=== PATIENT | female | born 1995 | race Caucasian/White ===

== ENCOUNTER 2016-08-15 15:36 | Emergency (ER) | payer BC ==
[2016-08-15 15:53] VITALS: BP 114/65
[2016-08-15] MEDS ORDERED: Acetaminophen TAB* 325 MG PO ONE (16:30)
--- NOTE | 2016-08-15 16:47 | UC ---
Throat Pain/Nasal Guille HPI - HPI Summary HPI Summary: pt c/o of fever, chills, sore throat, body aches X 2 days. - History of Current Complaint Chief Complaint: UCGeneralIllness Stated Complaint: FEVER/SORE THROAT/BODY ACHES Time Seen by Provider: 08/15/16 16:25 Hx Obtained From: Patient Hx Last Menstrual Period: 02/07/16 - on depo ?: No Onset/Duration: Gradual Onset, Lasting Days Severity: Mild Cough: Nonproductive Associated Signs & Symptoms: Positive: Dysphagia - Allergies/Home Medications Allergies/Adverse Reactions: Allergies Allergy/AdvReac Type Severity Reaction Status Date / Time No Known Allergies Allergy Verified 08/15/16 15:53 Home Medications: Home Medications NK [No Home Medications Reported] 08/15/16 [History Confirmed 08/15/16] PMH/Surg Hx/FS Hx/Imm Hx Previously Healthy: Yes - Surgical History Surgical History: Yes Surgery Procedure, Year, and Place: APPENDECTOMY, right foot surgery - Family History Known Family History: Positive: Hypertension - Social History Lives: With Family Alcohol Use: None Substance Use Type: None Smoking Status (MU): Light Every Day Tobacco Smoker Type: Cigarettes Amount Used/How Often: 7 cigarettes/ day Review of Systems Constitutional: Fever, Chills, Fatigue Skin: Negative Eyes: Negative ENT: Sore Throat Respiratory: Cough Cardiovascular: Negative Gastrointestinal: Negative Genitourinary: Negative Motor: Negative Neurovascular: Negative Musculoskeletal: Myalgia Neurological: Negative Psychological: Negative All Other Systems Reviewed And Are Negative: Yes Physical Exam Triage Information Reviewed: Yes Appearance: Ill-Appearing Vital Signs: Initial Vital Signs Temp 100.5 F 08/15/16 15:48 Pulse 123 08/15/16 15:48 Resp 18 08/15/16 15:48 BP 114/65 08/15/16 15:48 Pulse Ox 100 08/15/16 15:48 Vital Signs Reviewed: Yes Eye Exam: Normal ENT Exam: Other ENT: Positive: Nasal congestion, TM bulging Neck exam: Normal Respiratory Exam: Normal Cardiovascular Exam: Normal Musculoskeletal Exam: Normal Neurological Exam: Normal Psychological Exam: Normal Skin Exam: Normal Throat Pain/Nasal Course/Dx - Differential Dx/Diagnosis Differential Diagnosis/HQI/PQRI: Influenza, Pharyngitis, Tonsillitis, URI Provider Diagnoses: viral syndrome Discharge - Discharge Plan Condition: Stable Disposition: HOME Patient Education Materials: Viral Syndrome (ED) Forms: *Work Release Referrals: Fariha COLVIN,Hoang Brand [Primary Care Provider] - If Needed Additional Instructions: Please follow up with your PCP or return to clinic as needed.
== END 2016-08-15 16:54 | disposition home or self-care (01) ==
LOC: UCCORT 15:36
DX: B34.9 Viral infection, unspecified (principal); F17.210 Nicotine dependence, cigarettes, uncomplicated
CPT/HCPCS: 87502; 99212; A9270-GY; G0463

== ENCOUNTER 2017-07-31 12:25 | Emergency (ER) | payer MEDICAID, OTHER ==
--- NOTE | 2017-07-31 13:05 | UC ---
FLU HPI - HPI Summary HPI Summary: Pt presents with fever, sinus congestion, dry cough, and body aches for 2 days. She is currently 6 months . Has been taking tylenol with good relief of her fever. She called her OB yesterday and they told her to come to today if she was not better to be tested for the flu. Denies SOB, chest pain, abdominal pain, n/v/d/c, cramping, spotting or vaginal bleeding. - History of Current Complaint Stated Complaint: BODY ACHES, CONGESTION Time Seen by Provider: 07/31/17 13:03 Hx Obtained From: Patient Hx Last Menstrual Period: 02/07/16 - on depo ?: Yes - 6m Onset/Duration: Gradual Onset Severity Currently: Mild Severity Initially: Mild Pain Intensity: 3 Pain Scale Used: 0-10 Numeric - Allergy/Home Medications Allergies/Adverse Reactions: Allergies Allergy/AdvReac Type Severity Reaction Status Date / Time bee venom protein (honey bee) Allergy Swelling Verified 07/31/17 13:05 Home Medications: Home Medications Acetaminophen [Acetaminophen Extra Strength] 500 mg PO Q4H PRN 07/31/17 [ History Confirmed 07/31/17] Phenylephrine/Dm/Acetaminop/GG [Mucinex Fast-Max Cold/Flu 6-13-370-325 mg] 2 cap PO Q4H PRN 07/31/17 [History Confirmed 07/31/17] PMH/Surg Hx/FS Hx/Imm Hx - Additional Past Medical History Additional PMH: None Previously Healthy: Yes - Surgical History Surgical History: Yes Surgery Procedure, Year, and Place: APPENDECTOMY, right foot surgery - Family History Known Family History: Positive: Hypertension - Social History Occupation: Employed Full-time Lives: With Family Alcohol Use: None Substance Use Type: None Smoking Status (MU): Light Every Day Tobacco Smoker Type: Cigarettes Amount Used/How Often: 7 cigarettes/ day Review of Systems Constitutional: Fever, Fatigue, Other - Body aches Skin: Negative Eyes: Negative ENT: Sinus Congestion Respiratory: Cough Cardiovascular: Negative Gastrointestinal: Negative Genitourinary: Negative Neurovascular: Negative Musculoskeletal: Negative Neurological: Negative Psychological: Negative All Other Systems Reviewed And Are Negative: Yes Physical Exam - Summary Physical Exam Summary: GENERAL: NAD. WDWN. No pain distress. SKIN: No rashes, sores, ulcers, masses, lesions. HEENT: Head: AT/NC Eyes: EOM intact. Conjunctiva clear without inflammation or discharge. Ears: Hearing grossly normal. TMs intact, no bulging, erythema, or edema. Nose: Nasal mucosa pink and moist. NTTP maxillary and frontal sinus. Throat: Posterior oropharynx without exudates, erythema, or tonsillar enlargement. Uvula midline. NECK: Supple. Nontender. No lymphadenopathy. CHEST: CTAB. No r/r/w. No accessory muscle use. Breathing comfortably and in no distress. CV: RRR. Without m/r/g. Pulses intact. Brisk cap refill. NEURO: Alert. CN II-XII grossly intact. PSYCH: Age appropriate behavior. Triage Information Reviewed: Yes Flu Course/Dx - Course Course Of Treatment: POC Flu B positive. Given her recommendations are to begin tamiflu. - Differential Dx/Diagnosis Provider Diagnoses: Influenza B Discharge - Sign-Out/Discharge Documenting (check all that apply): Discharge - Discharge Plan Condition: Stable Disposition: HOME Prescriptions: Oseltamivir CAP* [Tamiflu CAP*] 75 mg PO BID #10 cap Patient Education Materials: Influenza (DC) Forms: *Work Release Referrals: Fariha COLVIN,Hoang Brand [Primary Care Provider] - Additional Instructions: If you develop a fever, shortness of breath, chest pain, new or worsening symptoms - please call your PCP or go to the ED. 1) Continue to take tylenol for your fever/discomfort 2) If your symptoms worsen or continue - please follow up with your OBGYN - Billing Disposition and Condition Condition: STABLE Disposition: HOME
[2017-07-31 13:09] VITALS: BP 112/66
== END 2017-07-31 13:39 | disposition home or self-care (01) ==
LOC: UCCORT 12:25
DX: J10.1 Influenza due to other identified influenza virus with other respiratory manifestations (principal); F17.210 Nicotine dependence, cigarettes, uncomplicated
CPT/HCPCS: 87502; 99212; G0463

== ENCOUNTER 2017-10-26 08:24 | Inpatient (IN) | payer OTHER ==
[2017-10-26] MEDS ORDERED: Misoprostol TAB* 100 MCG PO ONE ×2 (09:43→14:15)
[2017-10-26] MEDS ORDERED: Penicillin G Potassium IV* 5,000,000 UNITS in NS 0.9% 100 ML* 100 ML IVPB ONE (10:00)
--- NOTE | 2017-10-26 10:05 | HP ---
General Information - General Information Maternal Age: 22 Grav: 1 Para: 0 SAB: 0 IEA: 0 Estimated Due Date: 10/31/17 Determined By: Early Ultrasound Gestational Age in Weeks and Days: 39 Weeks and 2 Days Maternal Blood Type and Rh: O Positive - Results this Serology/RPR Result: Non-Reactive Rubella Result: Immune HBsAg Result: Negative HIV Result: Negative GBS Culture Result: Positive Past Medical History Delivery History: See Records Pertinent Past Medical History: Non-Contributory Pertinent Past Surgical History: None Pertinent Family History: See Records - Dm,HTN,thyroid, lung CA, autism, blindness Review of Systems Constitutional: Comfortable CV Complaint: No Respiratory: Shortness of Breath: No Gastrointestinal: No Nausea/Vomiting, Normal Bowel Movement Genitourinary: No Dysuria, No Bleeding, No Leaking Fluid Musculoskeletal: No Complaint Neurological: No Headache Movement: Normal Exam Allergies/Adverse Reactions: Allergies bee venom protein (honey bee) Allergy (Verified 07/31/17 13:05) Swelling T:98.7, R:18, BP: 114/72, O2:100, P:91 - Measurements Height: 5 ft 2 in Weight: 112 lb Weight in lbs: 112.588133 Body Mass Index (BMI): 20.5 Pre- Weight: 90 lb Weight Gained This : 22 lbs and 0 ozs - Exam Abdomen: No Upper Quadrant Pain Breast: Breast Exam Deferred CVA: No CVA Tenderness Extremities: No Edema Heart: Normal Rhythm/Heart Sounds HEENT: No Significant Findings Lungs: Clear Bilaterally Rectal: Rectal Exam Deferred Reflexes: DTR 2+ Thyroid: No Thyromegaly - Abdominal Exam Abdomen Exam: Non-Tender Abdomen Exam Comment: s<d - Ultrasound/Biophysical Profile Ultrasound Status: Not Done Targeted Exam Findings See L&D Outpatient Visit Provider Note for Findings: N/A Cervical Exam: 2cm Effacement: 70% Station: -1 Presenting Part: Vertex Membrane Status: Intact Bleeding/Discharge: None EFM Findings - External Monitor Findings Baseline Heart Rate: 130 External Monitor Findings: Accelerations Present, No Pattern of Variable or Late Decelerations, Variability Moderate, Baseline Stable Contractions: Irregular, < 45 Seconds Contraction Frequency: 5-9 Assessment/Plan - Reason for Visit Reason for Visit: Induction of labor IUGR - Obstetrical Risk Factors Obstetrical Risk Factors: GBS Positive Risk Factors Comment: IUGR - Plan Plan: Induction, Cervical Ripening - Date/Time of Admission Date of Admission: 10/26/17 Time of Admission: 10:00
[2017-10-26] MEDS: Ondansetron ODT TAB* 4 MG PO PRN ×2 (11:59→21:04)
[2017-10-26 12:40] LABS: ABS Basophils 0 10^3/ul (0-0.2); ABS Eosinophils 0.1 10^3/ul (0-0.6); ABS Lymphocytes 2.2 10^3/ul (1.0-4.8); ABS Monocytes 0.8 10^3/ul (0-0.8); ABS Neutrophils 6.9 10^3/ul (1.5-7.7); ABS Nucleated RBC 0 10^3/ul; Eosinophil % 1.3 % (0-6); Hematocrit 37 % (35-47); Hemoglobin 12.4 g/dl (12.0-16.0); Lymphocyte % 21.7 % (25-47); Mean Corpuscular HGB Conc 34 g/dl (31-36); Mean Corpuscular Hemoglobin 31 pg (27-31); Mean Corpuscular Volume 91 fL (80-97); Nucleated Red Blood Cells % 0; Platelet Count 402 10^3/ul (150-450); Red Blood Count 4.04 10^6/ul (4.00-5.40); Red Cell Distribution Width 13 % (10.5-15)
--- NOTE | 2017-10-26 18:28 | PN ---
Progress Note - Progress Note Date of Service: 10/26/17 - 16:30 Note: S: Pt still comfortable, reports an increase in cramping and back pain but denies contractions at this time. +FM, -LOF, -VB. O: BP: 105/62. P: 72, R:18, T:98.7 Cervix: 2/80/-1 NST:baseline 130bpm, +Accels, -decels, mod variability, ctx q 3 -4min A: 22 y.o. 39w2d EGA, GBS +, Cat 1 NST. IOL for IUGR. P: 1) Reviewed options with patient 2) Continue with second dose of misoprostol. 3) Reevaluate in 4 hours or sooner PRN 4) Encourage position changes and ambulation
[2017-10-26] MEDS ORDERED: Nalbuphine* 10 MG/ML 1 ML VIAL IV ONE (23:30)
[2017-10-26] MEDS ORDERED: Promethazine INJ(RESTRICTED)* 25 MG/ML 1 ML VIAL IV ONE (23:30)
--- NOTE | 2017-10-26 23:33 | PN ---
Progress Note - Progress Note Date of Service: 10/26/17 SOAP: Subjective: [Pt tired and weepy. Reviewed options with patient and pt elects for therapeutic rest and reevaluation in the AM. ] Objective: [cervix: ] Assessment: [22 y.o. IOL IUGR] Plan: [1) Counseled pt on options 2) therapeutic rest 3) Reevaluate PRN]
[2017-10-27] MEDS: Penicillin G Potassium IV* 2,500,000 UNITS in NS 0.9% 100 ML* 100 ML IVPB SCH ×5 (01:00→16:17)
[2017-10-27] MEDS: Ondansetron ODT TAB* 4 MG PO PRN ×2 (04:29→16:17)
[2017-10-27] MEDS ORDERED: OBEPIDURAL* 250 ML EPIDURAL ONE (12:10)
--- NOTE | 2017-10-27 12:37 | PN ---
Progress Note - Progress Note Date of Service: 10/26/17 - 9:00 SOAP: Subjective: [Pt increasingly uncomfortable and requests epidural. -LOF, +FM, -VB, + bloody show.] Objective: BP: 106/56, T:98.6 [FHT: baseline: 140bpm, + accels, -decels, mod variability] Cervix: 3-90/0 Assessment: [22 y.o. , IUGR, IOL] Plan: [1) AROM: clear 2) Epidural 3) Reevaluate PRN ]
[2017-10-27] MEDS ORDERED: Famotidine TAB* 20 MG PO PRN (13:09)
[2017-10-27] MEDS ORDERED: Sodium Citrate/Citric Acid* 15 ML UDC PO PRN (13:09)
[2017-10-27] MEDS ORDERED: Phenylephrine IV* 40 MCG/ML 10 ML SYRINGE IV PUSH PRN (13:09)
--- NOTE | 2017-10-27 20:24 | PN ---
Progress Note - Progress Note Date of Service: 10/27/17 SOAP: Subjective: [Pt had been comfortable with epidural, but after switching pumps her pain was getting worse again. Anesthesia called, with report of adequate pain relief for pt after and an increase of pressure.] Objective: [BP: 119/62, T: 98.2 cervix: 8/90/0 FHT: 135 baseline, + accels, occasional early decels, mod variability] Assessment: [22 y.o. . IOL, active labor. Cat 1 NST] Plan: [1) Continue position changes 2) Labor down until urge to push 3) Reevaluate PRN]
[2017-10-27] MEDS ORDERED: Oxytocin in LR* 20 UNITS/1,000 ML BAG IVPB ONE (22:07)
[2017-10-27] MEDS ORDERED: Misoprostol TAB* 200 MCG PR ONE (22:30)
[2017-10-27] MEDS ORDERED: Acetaminophen TAB* 325 MG PO PRN (22:30)
[2017-10-27] MEDS ORDERED: Glycerin ADULT SUPP PR PRN (22:30)
--- NOTE | 2017-10-27 22:39 | PROCNOTE ---
[facility] OB: Delivery Note - Delivery A Date of : 10/27/17 Score 1 Minute: 5 Score 5 Minutes: 9 Gestational Age in Weeks and Days at Delivery: 39 Weeks and 3 Days Delivery Method: Spontaneous Vaginal Labor: Induced Amniotic Fluid: Clear Estimated Blood Loss: 250 Anesthesia/Analgesia: IM/IV, CEI for Labor Delivered By: Haleigh Schneider - Nursery Level of Nursery: Regular/Bedside - Perineum Perineal Injury: Midline Episiotomy, 2nd Degree Perineal Repair: By Delivering Practioner - Events Delivery Events of Note: Pitocin Only After Delivery, Full Course of Antibiotics Delivery Events of Note Comment: Prolonged due to left nuchal arm. Midline episiotomy cut with rapid delivery of head and body with next contraction.
[2017-10-27] MEDS ORDERED: Oxytocin in LR* 20 UNITS/1,000 ML BAG IVPB SCH (23:00)
[2017-10-28] MEDS: Witch Hazel PAD* JAR TOPICAL PRN (04:14)
[2017-10-28] MEDS: Dibucaine 1% 28.35 GM TUBE PR PRN (04:14)
[2017-10-28] MEDS: Ibuprofen TAB* 600 MG PO PRN ×3 (04:14→21:10)
[2017-10-28 06:10] LABS: ABS Basophils 0.1 10^3/ul (0-0.2); ABS Eosinophils 0.1 10^3/ul (0-0.6); ABS Lymphocytes 1.9 10^3/ul (1.0-4.8); ABS Monocytes 1.4 10^3/ul (0-0.8); ABS Neutrophils 13.6 10^3/ul (1.5-7.7); ABS Nucleated RBC 0 10^3/ul; Eosinophil % 0.3 % (0-6); Hematocrit 29 % (35-47); Hemoglobin 10.1 g/dl (12.0-16.0); Lymphocyte % 11.2 % (25-47); Mean Corpuscular HGB Conc 35 g/dl (31-36); Mean Corpuscular Hemoglobin 31 pg (27-31); Mean Corpuscular Volume 90 fL (80-97); Mean Platelet Volume 6.6 um3 (7.4-10.4); Nucleated Red Blood Cells % 0; Platelet Count 320 10^3/ul (150-450); Red Blood Count 3.23 10^6/ul (4.00-5.40); Red Cell Distribution Width 13 % (10.5-15)
[2017-10-28] MEDS ORDERED: Simethicone TAB* 80 MG TAB.CHEW PO SCH (08:30)
[2017-10-28] MEDS: OBEPIDURAL* 250 ML EPIDURAL SCH ×2 (12:25→12:38)
[2017-10-28] MEDS: Penicillin G Potassium IV* 2,500,000 UNITS in NS 0.9% 100 ML* 100 ML IVPB SCH ×3 (12:26→12:31)
[2017-10-28] MEDS: Ferrous Gluconate TAB* 324 MG TAB PO SCH ×2 (12:28→21:22)
[2017-10-28] MEDS: Docusate CAP* 100 MG PO SCH ×3 (12:28→21:22)
[2017-10-29] MEDS: Ferrous Gluconate TAB* 324 MG TAB PO SCH ×2 (08:25→19:49)
[2017-10-29] MEDS: Ibuprofen TAB* 600 MG PO PRN ×2 (08:26→16:00)
[2017-10-29] MEDS: Docusate CAP* 100 MG PO SCH ×3 (10:11→19:49)
[2017-10-29] MEDS: Witch Hazel PAD* JAR TOPICAL PRN (19:49)
[2017-10-29] MEDS: Dibucaine 1% 28.35 GM TUBE PR PRN (19:49)
[2017-10-30] MEDS: Ibuprofen TAB* 600 MG PO PRN (04:04)
[2017-10-30] MEDS: Docusate CAP* 100 MG PO SCH (08:24)
[2017-10-30 09:05] VITALS: BP 104/63
[2017-10-30] MEDS: Ferrous Gluconate TAB* 324 MG TAB PO SCH (09:37)
== END 2017-10-30 10:43 | disposition home or self-care (01) | DRG 560 ==
LOC: MCHOBOUT 08:24 → MCHOB 09:44
PROVIDERS: ADMIT Midwife; ATTEND Midwife
PROC: 10E0XZZ Delivery of Products of Conception, External Approach (ICD-10-PCS; principal; 2017-10-27)
PROC: 3E033VJ Introduction of Other Hormone into Peripheral Vein, Percutaneous Approach (ICD-10-PCS; 2017-10-27)
PROC: 10907ZC Drainage of Amniotic Fluid, Therapeutic from Products of Conception, Via Natural or Artificial Opening (ICD-10-PCS; 2017-10-27)
PROC: 0W8NXZZ Division of Female Perineum, External Approach (ICD-10-PCS; 2017-10-27)
DX: O36.5930 Maternal care for other known or suspected poor fetal growth, third trimester, not applicable or unspecified (principal); O99.824 Streptococcus B carrier state complicating childbirth; O99.334 Smoking (tobacco) complicating childbirth; Z3A.39 39 weeks gestation of pregnancy; Z37.0 Single live birth
CPT/HCPCS: 36415; 85025; 86850; 86900; 86901; 88307; A9270-GY; J2300; J2540; J2550; S0191

== ENCOUNTER 2018-10-04 09:02 | Inpatient (IN) | payer MEDICAID, OTHER ==
[2018-10-04] MEDS ORDERED: Buffered Lidocaine 1% SYRIN* 1 ML/SYRINGE INTRADERM ONE (09:56)
[2018-10-04] MEDS ORDERED: Lactated Ringers 1000 ML Bag* 1,000 ML IV ONE ×2 (09:56→16:03)
[2018-10-04] MEDS ORDERED: Lactated Ringers 1000 ML Bag* 1,000 ML IV SCH ×3 (10:00→20:00)
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
[2018-10-04 11:10] LABS: ABS Eosinophils 0.1 10^3/ul (0-0.6); ABS Lymphocytes 1.7 10^3/ul (1.0-4.8); ABS Monocytes 0.7 10^3/ul (0-0.8); Eosinophil % 0.8 %; Hematocrit 30 % (35-47); Hemoglobin 10.3 g/dL (12.0-16.0); Lymphocyte % 16.2 %; Mean Corpuscular HGB Conc 34 g/dL (31-36); Mean Corpuscular Hemoglobin 29 pg (27-31); Mean Corpuscular Volume 84 fL (80-97); Mean Platelet Volume 6.7 fL (7.4-10.4); Nucleated Red Blood Cells % 0.1; Platelet Count 449 10^3/uL (150-450); Red Blood Count 3.62 10^6 /uL (3.70-4.87); Red Cell Distribution Width 14 % (10-15); White Blood Count 10.6 10^3/uL (3.5-10.8)
[2018-10-04 11:55] LABS: Activated Partial Thrombo Time 28.2 seconds (26.0-38.0); Fibrinogen 371.9 mg/dL (110.8-404.3)
--- NOTE | 2018-10-04 14:12 | PN ---
Progress Note - Progress Note Date of Service: 10/04/18 SOAP: Subjective: Pt reports ctx are further apart but stronger. Pt denies vaginal bleeding. Objective: FHT: 120bpm, + accels, -decels, moderate variability, ctx q 5-7min 4-5/80/0, AROM: clear, + bloody show. Assessment: 23 y.o. , 39w1d EGA, IUGR, augmentation Plan: 1) Encourage ambulation 2) Reevaluate in 2 hrs or sooner PRN
[2018-10-04] MEDS ORDERED: OBEPIDURAL* 250 ML EPIDURAL ONE (15:24)
[2018-10-04] MEDS ORDERED: Phenylephrine 40 MCG/ML SYRINGE IV PUSH PRN ×2 (16:03)
[2018-10-04] MEDS ORDERED: Sodium Citrate/Citric Acid* 15 ML UDC PO PRN (16:03)
[2018-10-04] MEDS ORDERED: OBEPIDURAL* 250 ML EPIDURAL SCH (17:00)
[2018-10-04] MEDS ORDERED: Acetaminophen TAB* 325 MG PO PRN ×2 (17:51→19:35)
[2018-10-04 18:43] LABS: Urine Benzodiazepine Screen None Detected (None Detect); Urine Opiates Screen None Detected (None Detect)
[2018-10-04] MEDS ORDERED: Oxytocin in LR* 20 UNITS/1,000 ML BAG IVPB ONE (19:06)
[2018-10-04] MEDS ORDERED: Dibucaine 1% 28.35 GM TUBE PR PRN (19:35)
[2018-10-04] MEDS ORDERED: Witch Hazel PAD* JAR TOPICAL PRN (19:35)
[2018-10-04] MEDS ORDERED: Glycerin ADULT SUPP PR PRN (19:35)
--- NOTE | 2018-10-04 19:43 | PROCNOTE ---
[facility] OB: Delivery Note - Delivery A Date of : 10/04/18 Time of : 19:00 Sex: Male Score 1 Minute: 8 Score 5 Minutes: 9 Gestational Age in Weeks and Days at Delivery: 39 Weeks and 1 Days Delivery Method: Spontaneous Vaginal Labor: Spontaneous Amniotic Fluid: Clear Estimated Blood Loss: 250 Anesthesia/Analgesia: CEI for Labor Delivered By: Haleigh Schneider - Nursery Level of Nursery: Regular/Bedside - Perineum Perineal Injury: None/Intact - Events Delivery Events of Note: Pitocin Only After Delivery - Additional Delivery Notes Additional Delivery Notes: nuchal cord x 1, left nuchal arm
[2018-10-04] MEDS ORDERED: Oxytocin in LR* 20 UNITS/1,000 ML BAG IVPB SCH (20:00)
[2018-10-04] MEDS ORDERED: Simethicone TAB* 80 MG TAB.CHEW PO SCH (21:00)
[2018-10-04] MEDS: Docusate CAP* 100 MG PO SCH (22:07)
[2018-10-05] MEDS: Ibuprofen TAB* 600 MG PO PRN ×2 (05:18→11:12)
[2018-10-05 07:03] LABS: ABS Basophils 0.1 10^3/ul (0-0.2); ABS Eosinophils 0.1 10^3/ul (0-0.6); ABS Lymphocytes 1.7 10^3/ul (1.0-4.8); ABS Monocytes 0.8 10^3/ul (0-0.8); ABS Neutrophils 11.5 10^3/ul (1.5-7.7); Eosinophil % 0.4 %; Hematocrit 27 % (35-47); Hemoglobin 9.3 g/dL (12.0-16.0); Lymphocyte % 12.1 %; Mean Corpuscular HGB Conc 34 g/dL (31-36); Mean Corpuscular Hemoglobin 28 pg (27-31); Mean Corpuscular Volume 81 fL (80-97); Mean Platelet Volume 6.8 fL (7.4-10.4); Platelet Count 409 10^3/uL (150-450); Red Blood Count 3.36 10^6 /uL (3.70-4.87); Red Cell Distribution Width 14 % (10-15); White Blood Count 14.1 10^3/uL (3.5-10.8)
[2018-10-05] MEDS: Docusate CAP* 100 MG PO SCH (08:18)
[2018-10-05 08:48] VITALS: BP 107/69
[2018-10-05] MEDS ORDERED: Ferrous Gluconate TAB* 324 MG TAB PO SCH (09:00)
== END 2018-10-05 12:00 | disposition home or self-care (01) | DRG 560 ==
LOC: MCHOBOUT 09:02 → MCHOB 09:53
PROVIDERS: ADMIT Midwife; ATTEND Midwife
PROC: 10E0XZZ Delivery of Products of Conception, External Approach (ICD-10-PCS; principal; 2018-10-04)
PROC: 10907ZC Drainage of Amniotic Fluid, Therapeutic from Products of Conception, Via Natural or Artificial Opening (ICD-10-PCS; 2018-10-04)
DX: O36.5930 Maternal care for other known or suspected poor fetal growth, third trimester, not applicable or unspecified (principal); Z37.0 Single live birth; O99.334 Smoking (tobacco) complicating childbirth; O32.6XX0 Maternal care for compound presentation, not applicable or unspecified; O69.81X0 Labor and delivery complicated by cord around neck, without compression, not applicable or unspecified; O69.89X0 Labor and delivery complicated by other cord complications, not applicable or unspecified; O90.81 Anemia of the puerperium; D64.9 Anemia, unspecified; Z3A.39 39 weeks gestation of pregnancy
CPT/HCPCS: 36415; 80307; 83030; 85025; 85384; 85730; 86850; 86900; 86901; 88307; A9270-GY